=== PATIENT | male | born 1965 | race African-American/Black ===

== ENCOUNTER 2019-03-27 15:42 | Emergency (ER) | payer BC, MEDICAID ==
[~2019-03-27] VITALS: Ht 175.3 cm; Wt 84.8 kg
[2019-03-27 15:52] VITALS: BP_SYST 159
--- NOTE | 2019-03-27 15:52 | NUR ---
Placed in hallway for evaluation.
--- NOTE | 2019-03-27 15:52 | NUR ---
CAMI Kenney at bedside examining patient.
--- NOTE | 2019-03-27 15:53 | NUR ---
Patient brought in by self complaining left ear pain and wax build up x 1 week, Denies any fevers, dizziness, drainage. Pain 4/10. Patient reports just taking motrin prior to arrival. No other complaints/injuries per patient or as noted. will continue to monitor.
[2019-03-27 15:59] VITALS: BP_SYST 159
--- NOTE | 2019-03-27 15:59 | NUR ---
Patient given written and verbal discharge instructions and verbalizes understanding. ER MD discussed with patient the results and treatment provided. Patient in stable condition. ID arm band removed. Rx of Loratadine given. Patient educated on pain management and to follow up with PMD. Pain Scale 4/10 Opportunity for questions provided and answered. Medication side effect fact sheet provided.
== END 2019-03-27 15:59 | disposition home or self-care (01) ==
LOC: SED 15:42
DX: H66.92 Otitis media, unspecified, left ear (principal); E11.9 Type 2 diabetes mellitus without complications
CPT/HCPCS: 99282

== ENCOUNTER 2019-03-29 17:59 | Emergency (ER) | payer MEDICAID ==
[~2019-03-29] VITALS: Ht 175.3 cm; Wt 84.8 kg
[2019-03-29 18:24] VITALS: BP_SYST 125
--- NOTE | 2019-03-29 18:26 | NUR ---
Patient triaged and placed in waiting room. VSS and patient appears in no acute distress at this time. Accompanied by self, awaiting available bed, and MD notified of need for MSE.
--- NOTE | 2019-03-29 19:22 | NUR ---
Patient to ER H1 to gown for evaluation. Side rails up.
--- NOTE | 2019-03-29 19:24 | NUR ---
Patient complains of left upper mouth pain the the last two days. Pt states a week ago he had a tooth extraction at the dentist. Pt attempted to put his dentures in but noticed that he had a bump and tenderness to upper left gum. Patient denies fever, N/V or diarrhea. No other injuries/complaints patient or noted.
--- NOTE | 2019-03-29 19:54 | NUR ---
ER Dr. Lowe at bedside examining patient.
[2019-03-29] MEDS ORDERED: AMOXICILLIN 500 MG CAPSULE PO ONE (20:15)
[2019-03-29] MEDS ORDERED: IBUPROFEN 800 MG TABLET PO ONE (20:15)
--- NOTE | 2019-03-29 20:20 | NUR ---
Patient given written and verbal discharge instructions and verbalizes understanding. ER MD Longo discussed with patient the results and treatment provided. Patient in stable condition. ID arm band removed. Rx of Amoxicillin, Ibuprofen, norco given. Patient educated on pain management and to follow up with PMD. Pain Scale 3. Opportunity for questions provided and answered. Medication side effect fact sheet provided.
[2019-03-29 20:21] VITALS: BP_SYST 137
== END 2019-03-29 20:20 | disposition home or self-care (01) ==
LOC: SED 17:59
DX: K05.10 Chronic gingivitis, plaque induced (principal); K08.89 Other specified disorders of teeth and supporting structures; E11.9 Type 2 diabetes mellitus without complications; I10 Essential (primary) hypertension
CPT/HCPCS: 99283

== ENCOUNTER 2020-01-18 08:39 | Emergency (ER) | payer OTHER, MEDICAID ==
[~2020-01-18] VITALS: Ht 180.3 cm; Wt 81.6 kg
[2020-01-18 09:00] VITALS: BP_SYST 149
[2020-01-18] MEDS: ASPIRIN 325 MG TABLET PO ONE (09:19)
[2020-01-18] MEDS: MORPHINE 4 MG/ML INJ. SYRINGE IVP ONE (09:20)
[2020-01-18 09:40] LABS: BASOPHILS # (AUTO) 0.1 K/uL (0.0-0.2); EOSINOPHILS # (AUTO) 0.2 K/uL (0.0-0.4)
[2020-01-18 09:50] LABS: BASOPHILS % (AUTO) 0.9 % (0.0-2.0); EOSINOPHILS % (AUTO) 2.7 % (0.0-4.0); HEMATOCRIT 41.8 % (36-54); HEMOGLOBIN 13.9 g/dL (14.0-18.0); LYMPHOCYTES # (AUTO) 3.2 K/uL (1.0-5.5); LYMPHOCYTES % (AUTO) 44.7 % (20.5-51.5); MEAN CORPUSCULAR HEMOGLOBIN 29 pg (27-31); MEAN CORPUSCULAR HGB CONC 33 % (32-36); MEAN CORPUSCULAR VOLUME 86 fL (79.0-98.0); MONOCYTES # (AUTO) 0.7 K/uL (0.0-1.0); MONOCYTES % (AUTO) 9.8 % (1.7-9.3); NEUTROPHILS % (AUTO) 41.9 % (40.0-70.0); PLATELET COUNT (AUTO) 153 K/uL (130-430); RED BLOOD CELL COUNT(AUTO) 4.85 MIL/uL (4.2-6.2); RED CELL DISTRIBUTION WIDTH 13.6 % (9.0-15.0); WHITE BLOOD COUNT (AUTO) 7.1 K/uL (4.8-10.8)
[2020-01-18 10:03] LABS: CALCIUM 8.6 mg/dL (8.4-11.0); CREATININE 0.98 mg/dL (0.55-1.30); POTASSIUM 3.8 mmol/L (3.5-5.1)
[2020-01-18 10:08] LABS: ALBUMIN 3.9 g/dL (3.4-4.8); TOTAL BILIRUBIN 0.5 mg/dL (0.0-1.0)
[2020-01-18 10:41] VITALS: BP_SYST 149
== END 2020-01-18 10:43 | disposition home or self-care (01) ==
LOC: SED 08:39
DX: S43.492A Other sprain of left shoulder joint, initial encounter (principal); I10 Essential (primary) hypertension; E11.9 Type 2 diabetes mellitus without complications; X50.9XXA Other and unspecified overexertion or strenuous movements or postures, initial encounter; Y93.89 Activity, other specified; Y92.89 Other specified places as the place of occurrence of the external cause; Y99.8 Other external cause status
CPT/HCPCS: 36415; 71045; 80053; 83880; 84484; 85025; 93005; 96374; 99285; J2270